=== PATIENT | female | born 1985 | race Caucasian/White ===

== ENCOUNTER 2017-11-28 06:30 | Day surgery (SDC) | payer BC ==
[2017-11-25 11:47] LABS: BASOPHILS 0.6 % (0-2); EOSINOPHILS 1.8 % (0-7); HEMATOCRIT 37.1 % (36.0-48.0); HEMOGLOBIN 12.3 g/dL (12-16); IMMATURE GRANULOCYTES 0.2 % (0-5); LYMPHOCYTES 37.2 % (15-50); MCH 29.5 pg (26.0-34.0); MCHC 33.2 g/dL (31.0-37.0); MONOCYTES 5.9 % (2-11); NEUTROPHILS 54.3 % (40-80); PLATELET COUNT 242 10x3/uL (130-400); RBC 4.17 10x6/uL (4.00-5.40); RDW 12.7 % (11.5-14.5); WBC 4.9 10x3/uL (4.8-10.8)
[~2017-11-28] VITALS: Ht 170.2 cm; Wt 79.4 kg
--- NOTE | ~2017-11-28 | OP ---
PATIENT NAME: PAULINA ORTIZ MEDICAL RECORD: [id number] :83 LOCATION:D.OPS ADMISSION DATE: SURGEON: JORDAN MUSA MD DATE OF OPERATION: 11/28/2017 PREOPERATIVE DIAGNOSES: 1. Amenorrhea. 2. History of polycystic ovarian syndrome. 3. Endometrial thickening noted on an office ultrasound. POSTOPERATIVE DIAGNOSES: 1. Amenorrhea. 2. History of polycystic ovarian syndrome. 3. Endometrial thickening noted on an office ultrasound. PROCEDURE: Hysteroscopy, dilation and curettage. SURGEON: Jordan Musa MD ANESTHESIA: General endotracheal. INTRAVENOUS FLUIDS: Per anesthesia record. HYSTEROSCOPIC FLUID LOSS: Less than 100 cc of 0.9 normal saline. COMPLICATIONS: None apparent. SPECIMENS: Endometrial curettings. FINDINGS: 1. Grossly normal-appearing external genitalia, vagina, and cervix. 2. Grossly normal appearing proliferative endometrial canal. PROCEDURE IN DETAIL: The patient was taken to the operating room where general anesthesia was achieved without difficulty. The patient was then prepped and draped in normal sterile fashion in the dorsal lithotomy position in the [facility]. Following prep and drape, the bladder was drained of approximately 50 cc of clear yellow urine. A Graves speculum was then placed in the vagina and the cervix was grasped on its anterior lip using a single tooth tenaculum. At this point, the uterus was sounded and gentle dilation was performed to approximately 7 mm, at which point the hysteroscope was introduced into the uterus under direct visualization without resistance. Following visual survey of the endometrial canal, a gentle 4-quadrant curettage was performed with minimal bleeding noted. The tenaculum was then removed followed by the speculum. The patient tolerated the procedure well, transferred to postanesthesia recovery stable without incident. TRANSINT:[id number] Voice Confirmation ID: [id number] DOCUMENT ID: [id number] OPERATIVE REPORT [id number] PAULINA ORTIZ JORDAN BLUM MD at 0902 CC: [id number] DICTATION DATE: 12/06/17 0418 CREATIVE INTERN: 12/06/17 0756 [facility] 11/28/17 [facility] [address] [place] [address]
[~2017-11-28 06:30] MED LIST: ADIPEX-P37.5 MG PO; DEXILANT60 MG PO; MELATONIN10 M1 PO; PROTONIX40 MG PO
[2017-11-28 07:13] VITALS: BP 103/67; Ht 170.2 cm; Wt 79.4 kg
[2017-11-28 08:53] LABS: HCG URINE NEGATIVE (NEGATIVE)
== END 2017-11-28 11:20 | disposition home or self-care (01) ==
LOC: D.OPS 06:30 → D.PAN 09:00 → D.OPS 09:00
PROVIDERS: Obstetrics & Gynecology
DX: N84.0 Polyp of corpus uteri (principal); R93.89 Abnormal findings on diagnostic imaging of other specified body structures; Z01.812 Encounter for preprocedural laboratory examination

== ENCOUNTER 2018-10-10 18:38 | Outpatient (CLI) | payer BC ==
[2017-11-28 07:13] VITALS: BMI 27.4
== END 2018-10-10 20:40 | disposition home or self-care (01) ==
LOC: D.LDO 18:38
PROVIDERS: ATTEND Obstetrics & Gynecology
DX: O26.892 Other specified pregnancy related conditions, second trimester (principal); Z3A.17 17 weeks gestation of pregnancy

== ENCOUNTER 2019-03-11 16:03 | Inpatient (IN) | payer BC ==
[~2019-03-11] VITALS: Ht 170.2 cm; Wt 91.6 kg
[2019-03-11] MEDS ORDERED: OMEPRAZOLE40 MG PO (16:55)
[2019-03-11] MEDS ORDERED: PRENAVITE1 TAB PO (16:55)
[2019-03-11 16:56] VITALS: BP 116/70; Ht 170.2 cm; Wt 91.6 kg
[2019-03-11 17:02] LABS: HEMATOCRIT 36.2 % (36.0-48.0); HEMOGLOBIN 12.4 g/dL (12-16); MCH 30.8 pg (26.0-34.0); MCHC 34.3 g/dL (31.0-37.0); MCV 89.8 fL (80.0-100.0); MEAN PLATELET VOLUME 11.2 fL (7.4-10.4); RBC 4.03 10x6/uL (4.00-5.40); RDW 13.5 % (11.5-14.5); WBC 10.7 10x3/uL (4.8-10.8)
--- NOTE | 2019-03-12 02:30 | NUR ---
AFSHIN CAMERON, MANOJ TRANSFERRED PT VIA AMB TO ROOM 1257, PT AMB, GAIT STEADY, OUT OF ROOM TO [facility], INFORMED PT THAT I WILL BE IN SHORTLY, PT STATES "THAT'S FINE, I'M DOING GOOD", PT BACK TO ROOM, RECEIVED REPORT FROM AFSHIN CAMERON, RN
--- NOTE | 2019-03-12 03:28 | NUR ---
PT AT THIS TIME, DENIES NEEDS OR PAIN, FOB AT BEDSIDE
[2019-03-12 04:18] VITALS: BP 109/59
--- NOTE | 2019-03-12 04:18 | NUR ---
PT PRESIDENT & FOUNDER LIGHT, FINISHED , BACK TO NSY VIA OPEN CRIB CART PER NSY NURSE, PT UP TO BR, VOIDED WITH NO DIFFICULTY, BACK TO BED, FF, ML, U/U, PT REPORTS LITE-MOD BLEEDING, NO CLOTS, VS OBTAINED, C/O CRAMPING, ADM TORADOL PER MD ORDERS, SEE EMAR, PT DENIES FURTHER NEEDS, FOB ASLEEP ON COUCH
--- NOTE | 2019-03-12 06:06 | NUR ---
PT RESTING WITH EYES CLOSED, AROUSES TO SOFT VERBAL STIMUALTION, ADM TYLENOL PER MD ORDERS, SEE EMAR, PT DENIES FURTHER NEEDS, FOB ASLEEP ON COUCH
[2019-03-12 06:09] LABS: RAPID PLASMA REAGIN Non Reactive (Non Reactive)
[2019-03-12 06:37] LABS: BASOPHILS 0.1 % (0-2); EOSINOPHILS 0.6 % (0-7); HEMATOCRIT 35.3 % (36.0-48.0); HEMOGLOBIN 11.9 g/dL (12-16); IMMATURE GRANULOCYTES 0.2 % (0-5); LYMPHOCYTES 17.8 % (15-50); MCH 30.3 pg (26.0-34.0); MCHC 33.7 g/dL (31.0-37.0); MCV 89.8 fL (80.0-100.0); MEAN PLATELET VOLUME 11.1 fL (7.4-10.4); MONOCYTES 7.6 % (2-11); NEUTROPHILS 73.7 % (40-80); PLATELET COUNT 133 10x3/uL (130-400); RBC 3.93 10x6/uL (4.00-5.40); RDW 13.3 % (11.5-14.5); WBC 10.8 10x3/uL (4.8-10.8)
[2019-03-12 07:47] VITALS: BP 121/69
--- NOTE | 2019-03-12 07:47 | NUR ---
BF . VSS. REPORTS THAT BLEEDING HAS BEEN SMALL AND SHE IS VOIDING AND PASSING FLATUS WITHOUT DIFFICULTY. INSTRUCTED TO CALL RN USING CALL LIGHT WHEN COMPLETES BF, VERBALIZES UNDERSTANDING. BED IN LOW POSITION WITH SRUP X2. CALL LIGHT AND PHONE WITHIN REACH. SPOUSE RESTING ON COUCH AT BEDSIDE.
--- NOTE | 2019-03-12 08:37 | NUR ---
BONDING WITH INFANT AND OLDER CHILDREN. DENIES PAIN AND NEEDS AT THIS TIME. PT'S MOTHER REPORTS THAT SHE WILL BE TAKING OLDER CHILDREN IN APPROXIMATELY 10 MINUTES, WILL COMPLETE ASSESSMENT AT THAT TIME. BED IN LOW POSITION WITH SRUP X2. CALL LIGHT AND PHONE WITHIN REACH. WILL CONTINUE TO MONITOR.
--- NOTE | 2019-03-12 08:48 | NUR ---
Christina Dukes 03/12/2020 S: Patient states she delivered last night around 11 something. did great with first feedings. Both mother and infant are learning together how to breastfeed. She does use a nipple shield sometimes on the right breast. Verbally agrees to address questions or concerns about to hospital staff. O: Patient sitting up in bed holding toddler, family members in room cuddling infant. O: Praised for . Explained take time, practice, and patience in the beginning both mother and are learning together how to breastfeed. Explained how to verify infant is latched correctly, positions, and showed how to correctly apply nipple shield if using. Encouraged to take one feeding at a time and ask questions as needed. A: Patient delivered last night. Both mother and are working together to learn how to breastfeed. P: Continue to support exclusively during hospital visit. Michael Davis, CLC
--- NOTE | 2019-03-12 09:10 | NUR ---
SHIFT ASSESSMENT COMPLETED PER FLOWSHEET. FUNDUS FIRM MIDLINE AND U1 WITH SCANT RUBRA LOCHIA, NO CLOTS NOTED. DENIES PAIN, REPORTS THAT THE ONLY PAIN SHE HAS IS CRAMPING WITH BF. MEDS DISCUSSED, VERBALIZES UNDERSTANDING AND DENIES QUESTIONS. SPOUSE IN ROOM, SUPPORTIVE AND ATTENTIVE TO PT AND NEEDS. REFUSES SCD'S. REQUEST TO SHOWER AT LATER TIME, REPORTS THAT SHE IS EXPECTING VISITORS AND WOULD LIKE TO REST. BED IN LOW POSITION WITH SRUP X2. CALL LIGHT AND PHONE WITHIN REACH. WILL CONTINUE TO MONITOR.
--- NOTE | 2019-03-12 10:22 | NUR ---
C/O ABD CRAMPING 03/29, TORADOL GIVEN PER REQUEST. SODA AND ICE WATER PROVIDED. DENIES ADDITIONAL NEEDS. CONVERSING WITH VISITORS. BED IN LOW POSITION WITH SRUP X2. CALL LIGHT AND PHONE WITHIN REACH. WILL CONTINUE TO MONITOR.
--- NOTE | 2019-03-12 11:05 | NUR ---
DENIES PAIN AND NEEDS. CONVERSING WITH SPOUSE AND WATCHING TV. BED IN LOW POSITION WITH SRUP X2. CALL LIGHT AND PHONE WITHIN REACH. WILL CONTINUE TO MONITOR.
--- NOTE | 2019-03-12 12:27 | NUR ---
TYLENOL GIVEN PER ORDER. DENIES PAIN. EATING LUNCH AND CONVERSING WITH VISITORS. DENIES NEEDS. INFANT RESTING IN OPEN CRIB AT BEDSIDE. BED IN LOW POSITION WITH SRUP X2. CALL LIGHT AND PHONE WITHIN REACH. WILL CONTINUE TO MONITOR.
--- NOTE | 2019-03-12 12:35 | NUR ---
CONTINUES TO RATE PAIN 1/10, DENIES NEED FOR INTERVENTION. ICE PACK REMAINS OVER INCISION SITE. V/S REMAIN STABLE. DENIES NEEDS. BED IN LOW POSITION WITH SRUP X2. CALL LIGHT AND PHONE WITHIN REACH. WILL CONTINUE TO MONITOR.
--- NOTE | 2019-03-12 13:10 | NUR ---
CONTINUES TO DENY PAIN. SIGN POSTED ON DOOR REQUESTING NO VISITORS UNTIL P 1530 PER PT REQUEST. ICE WATER AND SODA PROVIDED. SPOUSE REMAINS AT BEDSIDE, SUPPORTIVE AND ATTENTIVE TO PT AND INFANT NEEDS. BED IN LOW POSITION WITH SRUPX 2. CALL LIGHT AND PHONE WITHIN REACH. WILL CONTINUE TO MONITOR.
--- NOTE | 2019-03-12 14:16 | NUR ---
LAYING ON LEFT SIDE RESTING WITH EYES CLOSED, RESP REGULAR AND UNLABORED, NO S/S OF DISTRESS NOTED. SPOUSE RESTING ON COUCH AT BEDSIDE. BED IN LOW POSITION WITH SRUP X2. CALL LIGHT AND PHONE WITHIN REACH. WILL CONTINUE TO MONITOR.
--- NOTE | 2019-03-12 15:05 | NUR ---
U/S TECH HERE TO FOR ECHO. DENIES PAIN AND NEEDS AT THIS TIME. SIGN PLACED ON DOOR FOR NO VISITORS UNTIL P 1600 PER PT REQUEST.
[2019-03-12 17:10] VITALS: BP 100/53
--- NOTE | 2019-03-12 17:52 | NUR ---
BF . DENIES PAIN AND NEEDS. BED IN LOW POSITION WITH SRUP X2. CALL LIGHT AND PHONE WITHIN REACH. WILL CONTINUE TO MONITOR AND ASSIST PRN. SPOUSE REMAINS AT BEDSIDE, SUPPORTIVE AND ATTENTIVE TO PT AND INFANT NEEDS.
--- NOTE | 2019-03-12 18:38 | NUR ---
TYLENOL GIVEN PER ORDER. DENIES PAIN AND NEEDS. BONDING WITH . WILL CONT TO MONITOR.
--- NOTE | 2019-03-12 19:33 | NUR ---
RECEIVED SHIFT REPORT FROM MARTA ELLINGTON, RN, PT INFANT AT THIS TIME, INFORMED PT THAT I WILL COME BACK SHORTLY TO DO ASSESSMENT, PT VERBALIZES UNDERSTANDING, DENIES NEEDS AT THIS TIME, FOB AT BEDSIDE
[2019-03-12 20:35] VITALS: BP 106/71
--- NOTE | 2019-03-12 20:35 | NUR ---
ASSESSMENT PER FLOW SHEET, VS OBTAINED, FF, ML, U/1, PT REPORTS FLATUS, SMALL BM THIS MORNING, VOIDING WITH NO DIFFICULTY, AND SCANT VAG BLEEDING, PT DENIES NEEDS OR PAIN, WENT OVER DISCHARGE WITH PT, PT REQUESTS TO ROOM IN IF INFANT IS NOT DISCHARGED, PT DOES NOT WANT TO BE CHARGED FOR ANOTHER NIGHT IN THE HOSPITAL
--- NOTE | 2019-03-12 21:38 | NUR ---
PT VISITING WITH FAMILY AND FRIENDS, DENIES NEEDS AT THIS TIME
--- NOTE | 2019-03-12 22:43 | NUR ---
PT VISITING WITH FAMILY AND FRIENDS, INFORMED PT THAT I WILL GET DISCHARGE PAPERWORK TOGETHER, PT VERBALIZES UNDERSTANDING, DENIES NEEDS AT THIS TIME, FOB AND FAMILY MEMBER AT BEDSIDE
--- NOTE | 2019-03-12 23:15 | NUR ---
PT AT THIS TIME, WENT OVER ALL DISCHARGE TEACHING WITH PT, PT VERBALIZES UNDERSTANDING, DENIES QUESTIONS AT THIS TIME, PT C/O CRAMPING, WILL ADM TORADOL AND TYLENOL PER MD ORDERS
[2019-03-12] MEDS ORDERED: TORADOL10 MG PO (23:16)
--- NOTE | 2019-03-12 23:27 | NUR ---
ADM TORADOL AND TYLENOL PER MD ORDERS, SEE EMAR, WITH FRESH [employer] SODA, PT REPORTS THAT SHE IS GOING TO FINISH UP AND THEN GET READY TO LEAVE, PT INST TO LET ME KNOW WHEN SHE IS READY
--- NOTE | 2019-03-12 23:35 | NUR ---
PT IS GETTING THINGS TOGETHER AT THIS TIME, PT HAS ALL DISCHARGE TEACHING AND PAPERWORK IN HAND, FOB TO GET CAR
--- NOTE | 2019-03-16 11:25 | EC ---
PATIENT:PAULINA ORTIZ DATE OF SERVICE: 03/11/19 SEX: F MEDICAL RECORD: [id number] DATE OF : 83 LOCATION:[facility] AGE OF PATIENT: 33 ADMISSION DATE: 03/11/19 REFERRING PHYSICIAN: INTERPRETING PHYSICIAN: TARA RAY MD ECHOCARDIOGRAM REPORT ECHO CHARGES 4 ECHO COMPLETE Date: 03/12/19 CLINICAL DIAGNOSIS: TACHYCARDIA, SOB ECHOCARDIOGRAPHIC MEASUREMENTS (adult normal given) AC root (d.<3.7cm) 2.6 cm LV Septum d (<1.2 cm> 1.1 cm Valve Excursion 1.4 cm LV Septum (systole) 1.7 cm Left Atria (s.<4.0cm> 3.0 cm LVPW d(<1.2cm) 0.9 cm RV (d.<2.3cm) 2.7 cm LVPW (sytole) 1.7 cm LV diastole(<5.6CM) 5.6 cm MV E-F(>70mm/sec) cm LV systole 3.4 cm LVOT Diameter 1.5 cm MV exc.(>10mm) cm Est.ejection fraction (50-75%) % DOPPLER: LVIT cm/sec A 46 cm/sec E 74 cm/sec LA cm/sec RVSP 20.2 mmHg LVOT 109 cm/sec AOP1/2T m/s Asc. Ao 143 cm/sec RVOT 80 cm/sec RA cm/sec PA 80 cm/sec AV Gradient Peak 8.2 mmHg AV Mean 3.8 mmHg AV Area 1.3 cm MV Gradient Peak 4.9 mmHg MV Mean 1.9 mmHg MV Area cm COMMENTS: Pan Washer Hand: Darryl PATRICKDAYNE TAL Wildlife Manager: 1 Dr. Ray TAPE# PACS Pericardial Effusion N DATE OF SERVICE: 03/12/2019 FINDINGS: 1. Left ventricular chamber size is within normal limits. Left ventricular systolic function is normal. Overall ejection fraction estimated at 60%. 2. Left atrium, right atrium, and right ventricle chamber sizes are within normal limits. 3. Valvular structures have normal structure and motion. 4. Doppler interrogation reveals no significant valvular insufficiency or stenosis and pulmonary systolic pressure is normal estimated at 20 mmHg. ECHOCARDIOGRAM REPORT [id number] PAULINA ORTIZ 5. No evidence of pericardial effusion or left ventricular thrombus. TRANSINT:[id number] Voice Confirmation ID: [id number] DOCUMENT ID: [id number] TARA RAY MD at 1125 CC: [id number] DICTATION DATE: 03/13/1944 POLLUTION CONTROL CHEMIST: 03/13/19 1120 DIS IN 03/12/19 [place] [id number] [place] [id number]
== END 2019-03-12 23:35 | disposition home or self-care (01) | DRG 807 ==
LOC: D.LDO 16:03 → D.LD 16:18
PROVIDERS: ADMIT Obstetrics & Gynecology; ATTEND Obstetrics & Gynecology
PROC: 10E0XZZ Delivery of Products of Conception, External Approach (ICD-10-PCS; principal; 2019-03-11)
DX: O75.89 Other specified complications of labor and delivery (principal); Z37.0 Single live birth; Z3A.38 38 weeks gestation of pregnancy; R00.0 Tachycardia, unspecified; R20.0 Anesthesia of skin; O69.81X0 Labor and delivery complicated by cord around neck, without compression, not applicable or unspecified